=== PATIENT | male | born 1990 | race Asian ===

== ENCOUNTER 2018-12-16 05:52 | Emergency (ER) | payer SELFPAY ==
[2018-12-16] MEDS ORDERED: ACETAMINOPHEN 500 MG TABLET (FP) PO ONE (06:22)
[2018-12-16 06:23] VITALS: BP 119/71; PULSE 94; TEMP 98.3; BMI 30.3
--- NOTE | 2018-12-16 06:25 | PDOC ---
Attending Attestation - Resident Resident Name: Julien Brooks - ED Attending Attestation I have performed the following: I have examined & evaluated the patient, The case was reviewed & discussed with the resident, I agree w/resident's findings & plan, Exceptions are as noted - HPI HPI: 12/16/18 06:22 28 M with no PMH Presents to ED with R ankle pain. Pt states that he was playing cricket last night when he twisted his ankle, inverting his foot. Pt reports falling at the time. Denies headstrike/LOC. Was able to get up and ambulate on the ankle afterwards, though with some pain. Pt states that he awoke this morning with swelling and worsening pain in his ankle, prompting him to come to the ER. Pt states that he is still able to ambulate on the R foot but with a limp. Denies any other injuries. Took motrin at 3AM today with minimal relief. - Physicial Exam PE: 12/16/18 06:24 GENERAL: Awake, alert, and fully oriented, in no acute distress. HEAD: No signs of trauma EYES: PERRLA, EOMI, sclera anicteric, conjunctiva clear ENT: Auricles normal inspection, hearing grossly normal, nares patent, oropharynx clear without exudates. Moist mucosa NECK: Nontender, no stepoffs, Normal ROM, supple, no lymphadenopathy, JVD, or masses LUNGS: Breath sounds equal, clear to auscultation bilaterally. No wheezes, and no crackles HEART: Regular rate and rhythm, normal S1 and S2, no murmurs, rubs or gallops ABDOMEN: Soft, nontender, normoactive bowel sounds. No guarding, no rebound. No masses EXTREMITIES: + R ankle with mild effusion and tenderness over lateral malleolus NEUROLOGICAL: Cranial nerves II through XII intact. 5/5 strength and sensation in all extremities, Normal speech, normal gait, normal cerebellar function SKIN: Warm, Dry, normal turgor, no rashes or lesions noted. - Medical Decision Making 12/16/18 06:24 28 M with R ankle pain after twisting it last night. Pt ambulatory in ED with some pain. Will r/o fx. - XR R ankle - Tylenol 12/16/18 06:58 XR negative on my read Pt placed in CHER wrap, offered crutches but declined Will DC with ortho f/u Pt is well appearing, with normal vitals. Clinically stable for DC at this time. I discussed the physical exam findings, ancillary test results and final diagnoses with the patient. I answered all of the patient's questions. The patient was satisfied with the care received and felt comfortable with the discharge plan and treatment plan. The patient agrees to follow up with the primary care physician within 24-72 hours.
--- NOTE | 2018-12-16 06:27 | PDOC ---
History of Present Illness - General Chief Complaint: Injury Stated Complaint: R ANKLE INJURY Time Seen by Provider: 12/16/18 06:15 - History of Present Illness Initial Comments: 12/16/18 06:22 The patient is a 28 year old male with no significant PMH who presents for evaluation of right ankle pain. The patient reports that he was playing cricket when he rolled his right ankle experiencing pain to that ankle. He noted pain throughout the night and took advil at 3 am with some improvement in his symptoms. However, he continued to experience pain worse with walking prompting his presentation to the ED for further evaluation. He notes that he has been able to ambulate on the foot since the injury. He otherwise denies head trauma, numbness, tingling, weakness, or other injuries. Past History - Past Medical History Allergies/Adverse Reactions: Allergies Allergy/AdvReac Type Severity Reaction Status Date / Time No Known Allergies Allergy Verified 12/16/18 06:23 Home Medications: Ambulatory Orders NK [No Known Home Medication] 12/16/18 Review of Systems - Review of Systems Comments:: 12/16/18 06:25 Constitutional: No fevers, chills, fatigue, malaise HEENT: No Rhinorrhea, nasal congestion, visual changes Cardiovascular: No chest pain, lightheadedness. syncope, palpitations, Respiratory: No Cough, SOB, Hemoptysis, Gastrointestinal: Nausea. No Abdominal pain, Vomiting, Constipation, Diarrhea, Genitourinary: No Dysuria, Frequency, Urgency, Hesitancy, Hematuria, Flank pain Musculoskeletal: Right ankle pain. No Myalgia, arthralgia Skin: No rashes, itching, bruising, pallor Neurologic: No Headache, Dizziness, Numbness, Weakness, Psychiatric: No Hallucinations. No SI or HI *Physical Exam - Physical Exam Comments: 12/16/18 06:26 General Appearance: Nourished. No Apparent Distress HEENT: No Pharyngeal Erythema, Tonsillar Exudate, Tonsillar Erythema Neck: No Cervical Lymphadenopathy Respiratory/Chest: Lungs Clear, Normal Breath Sounds. No Crackles, Rales, Rhonchi, Wheezing Cardiovascular: Regular Rhythm, Regular Rate. No Murmur, Gallops, Rubs Gastrointestinal/Abdominal: Normal Bowel Sounds, Soft. No Guarding, Rebound, Tenderness Musculoskeletal: No CVA Tenderness Extremity: Right lateral malleolus tenderness to palpation with edema. 2+ dp pulses bilaterally. No obvious deformity. Normal Capillary Refill Integumentary: Normal Color, Dry, Warm Neurologic: Fully Oriented, Alert, Normal Mood/Affect, Normal Response, Medical Decision Making - Medical Decision Making 12/16/18 06:27 The patient is a 28 year old male with no significant PMH who presents for evaluation of right ankle pain. Differential includes but is not limited to: Fracture, Dislocation, Sprain, Ligamentous Injury. Given the patient's history and physical exam, we will obtain plain films to evaluate further. We will continue to monitor and reassess while here in the ED. 12/16/18 07:01 Plain films were unremarkable. We are comfortable discharging the patient home in stable condition with ortho follow up. Patient made aware of impression and plan, return precautions discussed including but not limited to worsening pain or symptoms, fevers, or signs of infection, chest pain, respiratory distress, inability to tolerate oral intake, dehydration, syncope, or neurologic changes. The patient is to follow up with specialist as recommended within 1 week, follow up information provided and the patient will call for an appointment. The patient is to take medications as instructed for duration of time and continue with supportive care, avoid triggers and precipitants. Patient is safe for outpatient follow-up. *DC/Admit/Observation/Transfer Diagnosis at time of Disposition: Right ankle pain Qualifiers: Chronicity: acute Qualified Code(s): M25.571 - Pain in right ankle and joints of right foot - Discharge Dispostion Disposition: HOME Condition at time of disposition: Stable - Referrals Referrals: Suman Larson DO [Staff Physician] - - Patient Instructions Printed Discharge Instructions: DI for Ankle Sprain Additional Instructions: 1) Please follow-up with your primary care doctor in the next 2-3 days. Please call tomorrow to schedule a follow up appointment. If you cannot follow up with your doctor within 1 week please return to the Emergency Department for any urgent issues. 2) Your imaging results were normal here in the ER. You are to follow up with our manufacturing specialist should you have continued symptoms. You may use tylenol and ibuprofen as needed to help manage your pain at home. 3) If you have any worsening of symptoms or any other concerns please return to the ER immediately. Return if worsening symptoms including fevers, headache, vomiting, visual or hearing disturbances, abdominal pain, chest pain, shortness of breath, syncope, dehydration, inability to take things by mouth/vomiting, altered mental status, or worsening concerning symptoms. 4) Please continue taking your home medications as directed. Side effects may include upset stomach, abdominal pain, vomiting, or diarrhea. - Post Discharge Activity
[2018-12-16] MEDS ORDERED: ACETAMINOPHEN 325 MG TABLET (FP) ONE (06:28)
== END 2018-12-16 07:08 | disposition home or self-care (01) ==
LOC: JER 05:52
DX: M25.571 Pain in right ankle and joints of right foot (principal); X50.1XXA Overexertion from prolonged static or awkward postures, initial encounter; Y93.69 Activity, other involving other sports and athletics played as a team or group; Y92.328 Other athletic field as the place of occurrence of the external cause; Y99.8 Other external cause status
CPT/HCPCS: 73610-TC-RT-FY; 73630-TC-RT-FY; 99281-25